=== PATIENT | male | born 1990 | race Caucasian/White ===

== ENCOUNTER 2017-08-05 14:27 | Emergency (ER) | payer OTHER ==
[2017-08-05] MEDS ORDERED: NS 1,000 ML IV ONE (16:14)
--- NOTE | 2017-08-05 16:20 | EDPHY ---
H & P Time Seen by Provider: 08/05/17 16:05 HPI/ROS: CHIEF COMPLAINT: Abdominal pain HISTORY OF PRESENT ILLNESS: 27-year-old male presents to the emergency department complaining of right lower quadrant abdominal pain. The pain began 4 days ago and was gradually getting worse over the weekend. He states today he has not had any appetite and he feels that the pain is much worse. Still localized in the right lower quadrant. No radiation of pain. He had 1 episode of vomiting over the weekend. No diarrhea. No chest pain or difficulty breathing. No known ill contacts. No reported trauma. No urinary symptoms. He states he has urinated twice today. No fevers or chills. Never had pain like this in the past. REVIEW OF SYSTEMS: Constitutional: No fever, no chills. Eyes: No double or blurry vision. ENT: No sore throat. Respiratory: No cough, no shortness of breath. Cardiac: No chest pain. Gastrointestinal: Abdominal pain as above. Vomiting. No diarrhea. Genitourinary: No dysuria. Musculoskeletal: No neck or back pain. Skin: No rashes. Neurological: No headache. Past Medical/Surgical History: Negative Social History: Single and lives in [place]. No PCP. Smoking Status: Former smoker Physical Exam: General Appearance: Alert, no distress. Afebrile. No apparent distress. Eyes: Pupils equal and round. Extraocular motions are all intact. ENT: Mouth: Mucous membranes moist. Respiratory: No wheezing, rhonchi, or rales, lungs are clear to auscultation. Cardiovascular: Regular rate and rhythm. Gastrointestinal: Abdomen is soft. He has tenderness with palpation in the right lower quadrant. He has positive rebound tenderness. No CVA tenderness bilaterally. No palpable masses noted. Neurological: Alert and oriented x 3, cranial nerves II through XII grossly intact Skin: Warm and dry, no rashes. Musculoskeletal: Nontender to palpate along the cervical, thoracic or lumbar spine. Neck is supple. Extremities: Full range of motion and no peripheral edema. Psychiatric: Patient is oriented X 3, there is no agitation. Constitutional: Initial Vital Signs Temperature (C) 36.8 C 08/05/17 14:36 Heart Rate 74 08/05/17 14:36 Respiratory Rate 16 08/05/17 14:36 Blood Pressure 162/92 H 08/05/17 14:36 O2 Sat (%) 96 03/12/18 14:36 O2 Delivery Mode Room Air Allergies/Adverse Reactions: Penicillins Allergy (Intermediate, Verified 08/06/17 09:21) hives as child Home Medications: Medication Instructions Recorded No Medications [NO HOME 1 ea [facility] [place] 05/27/11 MEDICATIONS] Medical Decision Making - Diagnostics Imaging: Discussed imaging studies w/ acoustics teacher Radiologist ED Course/Re-evaluation: 27-year-old male presents to the emergency department with right lower quadrant abdominal pain. The pain began 4 days ago. He is afebrile. He has not had much of an appetite and has not eaten today. Initial ultrasound was obtained and they were unable to see the appendix. CT scan of the abdomen pelvis revealed evidence of isolated ascending colitis. No evidence of perforation or abscess. No tics. I spoke with the on-call first aid nurse, Dr. Vazquez, and he was informed that the patient would like to go home. He is tolerating p.o. Fluids. [facility] will contact the patient tomorrow to arrange for an outpatient follow-up appointment and likely colonoscopy. I offered admission to the hospital the patient declined. Patient was instructed to return to the emergency department if he developed worsening abdominal pain if he was unable to eat or drink, if you developed vomiting or diarrhea, fevers, or if he felt worse in any way. The case was discussed with Dr. Chrissy Loving, supervising physician, who did not directly evaluate the patient but agrees with treatment and plan. Differential Diagnosis: Including but not limited to acute appendicitis, urinary tract infection, pyelonephritis, kidney stone, mesenteric adenitis, gastroenteritis - Data Points Laboratory Results: Laboratory Results 08/05/17 16:42 08/05/17 16:42 Medications Given: Discontinued Medications Sodium Chloride (Ns) 1,000 mls @ 0 mls/hr IV ONCE ONE PRN Reason: Wide Open Stop: 08/05/17 16:15 Last Admin: 08/05/17 16:45 Dose: 1,000 mls Departure - Departure Disposition: Home, Routine, Self-Care Clinical Impression: Colitis Abdominal pain Qualifiers: Abdominal location: right lower quadrant Qualified Code(s): R10.31 - Right lower quadrant pain Condition: Good Instructions: Colitis (ED) Additional Instructions: Clear liquids and slowly advance diet as tolerated. Abdominal Pain: Return to the Emergency Department immediately for increasing pain, fever, vomiting, or if not completely better in 8-12 hours. We spoke with Dr. Rivera Vazquez while you are in the emergency department who is the on-call first aid nurse. Their office will contact you tomorrow to arrange for a outpatient follow-up appointment. If you do not hear from them by tomorrow afternoon, please call our office and tell them that you were seen in the emergency department and we spoke with Dr. Rivera Vazquez while you were here in your instructed to be seen for follow-up. Referrals: Rivera Vazquez MD [Medical Doctor] - 2-3 days without fail ( Computer Video Game Designer on-call)
[2017-08-05 16:59] LABS: PLATELET COUNT 195 10^3/uL (150-400)
[2017-08-05] MEDS ORDERED: IOPAMIDOL (ISOVUE-300) 100 ML BTL ONE (18:18)
[2017-08-05 18:21] VITALS: TEMP 98.4
[2017-08-05 20:37] VITALS: BP 148/95; PULSE 78; RESP 18; O2SAT 95
== END 2017-08-05 20:52 | disposition home or self-care (01) ==
DX: K52.9 Noninfective gastroenteritis and colitis, unspecified (principal); R11.10 Vomiting, unspecified; Z87.891 Personal history of nicotine dependence
CPT/HCPCS: Q9967

== ENCOUNTER 2017-08-06 09:19 | Inpatient (IN) | payer OTHER ==
[2017-08-06] MEDS ORDERED: NS 1,000 ML IV ONE (09:51)
--- NOTE | 2017-08-06 09:53 | EDPHY ---
H & P Smoking Status: Former smoker Time Seen by Provider: 08/06/17 09:41 HPI/ROS: CHIEF COMPLAINT: Abdominal pain HISTORY OF PRESENT ILLNESS: 27-year-old male presents to the emergency department with ongoing right sided abdominal pain. Symptoms began 4 5 days ago. He was seen in the emergency department yesterday and on CT scan the patient had ascending colitis. No evidence of perforation or abscess. Patient had no episodes of vomiting or diarrhea the emergency department. Patient was offered admission, however he wanted to go home. He was tolerating p.o. Fluids. He was to follow up with Gastroenterology who we spoke with while he was here. The patient returns to the emergency department this morning after the pain woke him up about 3 o'clock this morning. He has been only able to drink very little because of the abdominal pain. He is urinating very little. He has no diarrhea. No fevers or chills. No chest pain or difficulty breathing. REVIEW OF SYSTEMS: Constitutional: No fever, no chills. Eyes: No double or blurry vision. ENT: No sore throat. Respiratory: No cough, no shortness of breath. Cardiac: No chest pain. Gastrointestinal: Abdominal pain. No vomiting or diarrhea now. Genitourinary: No dysuria. Musculoskeletal: No neck or back pain. Skin: No rashes. Neurological: No headache. (Josephine Prajapati) Past Medical/Surgical History: Drinks 4-5 alcoholic beverages daily. (Josephine Prajapati) Social History: Single (Josephine Prajapati) Physical Exam: General Appearance: Alert, no distress. Afebrile. Eyes: Pupils equal and round. Extraocular motions are all intact. ENT: Mouth: Mucous membranes moist. Respiratory: No wheezing, rhonchi, or rales, lungs are clear to auscultation. Cardiovascular: Regular rate and rhythm. Gastrointestinal: Abdomen is soft. Tenderness with palpation in the right lower and right upper quadrant. He does have some positive rebound tenderness. He is not guarding. No CVA tenderness bilaterally. Neurological: Alert and oriented x 3, cranial nerves II through XII grossly intact Skin: Warm and dry, no rashes. Musculoskeletal: Nontender to palpate along the cervical, thoracic or lumbar spine. Neck is supple. Extremities: Full range of motion and no peripheral edema. Psychiatric: Patient is oriented X 3, there is no agitation. (Josephine Prajapati) Constitutional: Initial Vital Signs Temperature (C) 36.7 C 08/06/17 09:21 Heart Rate 79 08/06/17 09:21 Respiratory Rate 18 08/06/17 09:21 Blood Pressure 150/102 H 08/06/17 09:21 O2 Sat (%) 96 08/06/17 09:21 O2 Delivery Mode Room Air Allergies/Adverse Reactions: Penicillins Allergy (Intermediate, Verified 08/06/17 09:21) hives as child Home Medications: Medication Instructions Recorded No Medications [NO HOME 1 ea [facility] [place]/27[place]11 MEDICATIONS] Medical Decision Making ED Course/Re-evaluation: I discussed this case with Josephine Prajapati. I agree this patient has significant bowel inflammatory process. He may have a new onset new diagnosis of inflammatory bowel disease. He was here yesterday. He tried to manage as an outpatient but failed. He cannot hold down any fluids or food. We will consult Gastroenterology who Josephine spoke with yesterday and will admit him to the hospitalist. (Kei Sarah) 27-year-old male presents emergency department with right-sided abdominal pain. Patient had evidence of ascending colitis on CT scan yesterday. Patient still continues to have ongoing abdominal pain as well as rebound tenderness. He is afebrile. No vomiting or diarrhea. Laboratory studies reveal repeat CBC is 9.9. Liver function tests are still elevated. Patient states that he drinks alcohol daily. He did not drink any alcohol yesterday or today. The patient was offered admission to the hospital when he was in the emergency department yesterday, however the patient declined. Now that he returns with ongoing abdominal pain, unable to eat and drink without pain, he will be admitted to the hospitalist. Patient will be admitted to Dr. Tricia Santana the medical-surgical floor. 10:30 a.m.: I spoke with the on-call flexible nanny, Dr. Vazquez, who will come to evaluate the patient in the hospital. (Josephine Prajapati) Differential Diagnosis: Including but not limited to infectious colitis, inflammatory bowel disease, perforation, abscess, sepsis, dehydration (Josephine Prajapati) - Data Points Laboratory Results: Laboratory Results 08/06/17 10:00 08/06/17 10:00 08/06/17 08/06/17 10:00 10:00 WBC 9.90 10^3/uL H 10^3/uL (3.80-9.50) RBC 5.03 10^6/uL 10^6/uL (4.40-6.38) Hgb 16.7 g/dL g/dL (13.7-17.5) Hct 47.6 % % (40.0-51.0) MCV 94.6 fL fL (81.5-99.8) MCH 33.2 pg pg (27.9-34.1) MCHC 35.1 g/dL g/dL (32.4-36.7) RDW 12.1 % % (11.5-15.2) Plt Count 212 10^3/uL 10^3/uL (150-400) MPV 9.8 fL fL (8.7-11.7) Neut % (Auto) 65.6 % % (39.3-74.2) Lymph % (Auto) 20.7 % % (15.0-45.0) [place] % (Auto) 11.8 % % (4.5-13.0) Eos % (Auto) 0.6 % % (0.6-7.6) Baso % (Auto) 1.0 % % (0.3-1.7) Nucleat RBC Rel Count 0.0 % % (0.0-0.2) Absolute Neuts (auto) 6.49 10^3/uL 10^3/uL (1.70-6.50) Absolute Lymphs (auto) 2.05 10^3/uL 10^3/uL (1.00-3.00) Absolute Monos (auto) 1.17 10^3/uL H 10^3/uL (0.30-0.80) Absolute Eos (auto) 0.06 10^3/uL 10^3/uL (0.03-0.40) Absolute Basos (auto) 0.10 10^3/uL 10^3/uL (0.02-0.10) Absolute Nucleated RBC 0.00 10^3/uL 10^3/uL (0-0.01) Immature Gran % 0.3 % % (0.0-1.1) Immature Gran # 0.03 10^3/uL 10^3/uL (0.00-0.10) Sodium 139 mEq/L mEq/L (135-145) Potassium 4.4 mEq/L mEq/L (3.5-5.2) Chloride 101 mEq/L mEq/L (97-110) Carbon Dioxide 20 mEq/l L D mEq/l (22-31) Anion Gap 18 mEq/L H mEq/L (8-16) BUN 14 mg/dL mg/dL (7-23) Creatinine 0.8 mg/dL mg/dL (0.7-1.3) Estimated GFR > 60 Glucose 75 mg/dL mg/dL (70-100) Calcium 9.4 mg/dL mg/dL (8.5-10.4) Total Bilirubin 1.8 mg/dL H mg/dL (0.1-1.4) Conjugated Bilirubin 0.6 mg/dL H mg/dL (0.0-0.5) Unconjugated Bilirubin 1.2 mg/dL H mg/dL (0.0-1.1) AST 96 IU/L H IU/L (17-59) ALT 195 IU/L H IU/L (21-72) Alkaline Phosphatase 85 IU/L IU/L (38-126) Total Protein 8.2 g/dL g/dL (6.3-8.2) Albumin 4.6 g/dL g/dL (3.5-5.0) Departure - Departure Disposition: [facility] Inpatient Acute Clinical Impression: Colitis Abdominal pain Qualifiers: Abdominal location: right lower quadrant Qualified Code(s): R10.31 - Right lower quadrant pain Condition: Good
[2017-08-06 10:07] LABS: PLATELET COUNT 212 10^3/uL (150-400)
[2017-08-06] MEDS ORDERED: LORazepam 2 MG/ML INJ IVP PRN (10:30)
[2017-08-06] MEDS ORDERED: ONDANSETRON 4 MG/2 ML VIAL IVP PRN (10:30)
[2017-08-06] MEDS ORDERED: ONDANSETRON DISINTEGRATING 4 MG TAB PO PRN (10:30)
[2017-08-06] MEDS: NS 1,000 ML IV SCH ×2 (12:06→22:14)
[2017-08-06] MEDS: levOFLOXACIN 500 MG/DEXTROSE 100 ML IV SCH (15:31)
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
[2017-08-06] MEDS ORDERED: ACETAMINOPHEN 325 MG TAB PO PRN (16:20)
[2017-08-06] MEDS ORDERED: IBUPROFEN 600 MG TAB PO PRN (16:21)
[2017-08-06] MEDS: PANTOPRAZOLE SODIUM 40 MG TAB PO SCH (18:15)
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
[2017-08-07 06:53] LABS: PLATELET COUNT 194 10^3/uL (150-400)
--- NOTE | 2017-08-07 09:04 | SOAPPROG ---
SOAP Progress Note Assessment/Plan: Assessment: Pain somewhat improved. ? Colitis on CT scen inthe right colon. ? infectious. Plan: 1. Continue on Levaquin and Flagyl 2. Follow clinically, PE 3. Advance to low fiber diet 08/07/17 09:04 Subjective: CC: right sided abdominal pain. No BM's since admission. Slept well, pain is lightly improved. Objective: Vital Signs Temp Pulse Resp BP Pulse Ox 36.9 C 62 16 117/69 95 08/07/17 08:00 08/07/17 08:00 08/07/17 08:00 08/07/17 08:00 08/07/17 08:00 Laboratory Results 08/07/17 06:28 08/07/17 06:28 08/06/17 08/07/17 08/08/17 05:59 05:59 05:59 Intake Total 3590 Output Total 100 Balance 3490 Generic Name Dose Route Start Last Admin Trade Name Freq PRN Reason Stop Dose Admin Acetaminophen 650 mg 08/06/17 16:20 Tylenol PO 02/02/18 16:19 Q4HRS PRN Pain, Mild/Fever, Can Take PO Sodium Chloride 1,000 mls @ 100 mls/hr 08/06/17 10:30 08/06/17 22:14 Ns IV 02/02/18 10:29 1,000 mls CONT SYLVESTER Administration Thiamine HCl 500 mg/ Sodium 505 mls @ 505 mls/hr 08/07/17 09:00 Chloride IV 08/10/17 08:59 DAILY SYLVESTER Levofloxacin/Dextrose 100 mls @ 100 mls/hr 08/06/17 14:45 08/06/17 15:31 Levaquin 500 Mg (Premix) IV 09/05/17 14:44 100 mls DAILY SYLVESTER Administration Protocol Metronidazole/Sodium Chloride 100 mls @ 100 mls/hr 08/06/17 22:00 08/07/17 05 :46 Flagyl 500 Mg (Premix) IV 09/05/17 21:59 100 mls Q8HRS SYLVESTER Administration Protocol Ibuprofen 600 mg 08/06/17 16:21 Motrin PO 02/02/18 16:20 Q6HRS PRN Pain, Inflammatory Lorazepam 0 mg 08/06/17 10:30 Ativan Injection IVP 02/02/18 10:29 Q1H PRN Alcohol Withdrawal w/IV access Protocol Multivitamins 1 each 08/07/17 09:00 Tab-A-Nikki PO 02/03/18 08:59 DAILY SYLVESTER Ondansetron HCl 4 mg 08/06/17 10:30 Zofran IVP 02/02/18 10:29 Q4HRS PRN Nausea/Vomiting, Can't Take PO Ondansetron HCl 4 mg 08/06/17 10:30 Zofran Odt PO 02/02/18 10:29 Q4HRS PRN Nausea/Vomiting, Use 1st Pantoprazole Sodium 40 mg 08/06/17 17:15 08/06/17 18:15 Protonix PO 02/02/18 17:14 40 mg DAILY SYLVESTER Administration Thiamine HCl 100 mg 08/09/17 10:30 Vitamin B-1 PO 02/05/18 10:29 DAILY SYLVESTER Discontinued Medications Generic Name Dose Route Start Last Admin Trade Name Freq PRN Reason Stop Dose Admin Sodium Chloride 1,000 mls @ 0 mls/hr 08/06/17 09:51 08/06/17 10:42 Ns IV 08/06/17 09:52 1,000 mls ONCE ONE Administration Wide Open Physical Exam - Physical Exam General Appearance: alert, no apparent distress Respiratory: lungs clear, normal breath sounds Cardiac/Chest: regular rate, rhythm Abdomen: normal bowel sounds, other (tenderness to palpation right abdomen) Skin: normal color, warm/dry Neuro/Psych: no motor/sensory deficits, alert, normal mood/affect, oriented x 3 ICD10 Worksheet Patient Problems: Problems Problem Status Onset Abdominal pain Acute Colitis Acute Abdominal pain Acute Colitis Acute
[2017-08-07] MEDS: levOFLOXACIN 500 MG/DEXTROSE 100 ML IV SCH (09:16)
[2017-08-07] MEDS: PANTOPRAZOLE SODIUM 40 MG TAB PO SCH (09:16)
[2017-08-07] MEDS: MULTIVITAMINS 1 EACH TAB PO SCH (09:16)
[2017-08-07] MEDS: THIAMINE HCL 500 MG in NS 500 ML IV SCH (09:16)
--- NOTE | 2017-08-07 09:50 | ASMTCASEMG ---
Living Arrangements What is your living Answers: Alone arrangement? Who do you live with? Type Of Residence What kind of residence do Answers: House you live in? Discharge Plan Comments Coordination Status Comments Notes: Pt is a 27 y/o man admitted for abdominal pain. CT showed that pt has ascending colitis. Gastroenterology has been ordered. Pt will most likely not have any needs at time of d/c. No therapies ordered at this time. CM available for changes. Plan: Independent Date Signed: 08/07/2017 09:48 AM Electronically Signed By:TORIBIO Greenwood
--- NOTE | 2017-08-07 13:26 | HOSPPROG ---
Hospitalist Progress Note Assessment/Plan: 27y male with c/o abd pain. First encounter, chart reviewed. #R Abd pain -appreciate GI consult -cont abx therapy -improving -cotn supportive care #Transaminitis -follow labs -improving #Dispo -requires further therapy in hospital setting -change to inpt status -cont IV abx Subjective: Still having pain when moving. Feeling better then yesterday. Objective: Vital Signs Temp Pulse Resp BP Pulse Ox 36.8 C 79 16 124/77 H 92 08/07/17 11:21 08/07/17 11:21 08/07/17 11:21 08/07/17 11:21 08/07/17 11:21 Laboratory Results 08/07/17 06:28 08/07/17 06:28 08/06/17 08/07/17 08/08/17 05:59 05:59 05:59 Intake Total 3590 Output Total 100 Balance 3490 - Physical Exam Constitutional: no apparent distress, appears nourished, uncomfortable Eyes: PERRL, anicteric sclera, EOMI Ears, Nose, Mouth, Throat: moist mucous membranes, hearing normal, ears appear normal Cardiovascular: regular rate and rhythym, No JVD, No tachycardia, No edema Respiratory: no respiratory distress, no rales or rhonchi, clear to auscultation Gastrointestinal: normoactive bowel sounds, tenderness, No ascites, No guarding Skin: warm, normal color, No mottled Musculoskeletal: normal joint ROM, no joint effusions, generalized weakness Neurologic: AAOx3 Psychiatric: interacting appropriately, not anxious, not encephalopathic, thought process linear ICD10 Worksheet Patient Problems: Problems Problem Status Onset Abdominal pain Acute Colitis Acute Abdominal pain Acute Colitis Acute
--- NOTE | 2017-08-07 15:46 | PDMN ---
Medical Necessity Medical necessity: M565 inflammatory bowel disease A-2 days: insuff. responsiveness to outpt tx., with ongoing abd pain, no BM since admission, transaminitis, cont IV abx , IV fluids, > 2 midnights,
[2017-08-07] MEDS ORDERED: METHYL SALICYLATE/MENTHOL OINTMENT TP PRN (20:10)
[2017-08-08 06:03] LABS: HEPATITIS B SURFACE ANTIGEN NEGATIVE (NEGATIVE)
[2017-08-08 06:21] LABS: HEPATITIS C ANTIBODY TOTAL NEGATIVE (NEGATIVE)
--- NOTE | 2017-08-08 06:42 | HOSPPROG ---
Hospitalist Progress Note Assessment/Plan: XC: C. Diff positive, will change to PO Flagyl. Objective: Vital Signs Temp Pulse Resp BP Pulse Ox 36.5 C 55 L 17 124/80 H 93 08/08/17 04:00 08/08/17 04:00 08/08/17 04:00 08/08/17 04:00 08/08/17 04:00 Microbiology 08/07/17 18:25 Gastrointestinal Tract Panel (PCR) - Final Stool Clostridium Difficile Detected 08/07/17 08/08/17 08/09/17 05:59 05:59 05:59 Intake Total 2692 1784 Output Total 1 Balance 2691 1784 ICD10 Worksheet Patient Problems: Problems Problem Status Onset Abdominal pain Acute Colitis Acute Abdominal pain Acute Colitis Acute
--- NOTE | 2017-08-08 10:15 | SOAPPROG ---
SOAP Progress Note Assessment/Plan: Assessment: Positive stool for C. Diff. clinically getting better. D/C IV antibiotics and start PO Flagyl Abnormal LFT's. Labs sent for serologic work up. Plan: 1. Discontinue IV antibiotics 2. Start PO Flagyl 500 mg PO TID x 14 days (must avoid alcohol on Flagyl) 3. Abnormal LFT's c/w ETOH/Fatty liver. Labs sent for serologic workup 4. Continue on low fiber diet for about a week then advance to regular diet 08/08/17 10:16 Subjective: CC: Abdominal pain Had some loose stool today. feeling much better. Abdominal pain is improved. Objective: Vital Signs Temp Pulse Resp BP Pulse Ox 36.6 C 56 L 16 104/68 91 L 08/08/17 07:11 08/08/17 07:11 08/08/17 07:11 08/08/17 07:11 08/08/17 07:11 Microbiology 08/07/17 18:25 Gastrointestinal Tract Panel (PCR) - Final Stool Clostridium Difficile Detected 08/07/17 08/08/17 08/09/17 05:59 05:59 05:59 Intake Total 2692 1784 Output Total 1 Balance 2691 1784 Generic Name Dose Route Start Last Admin Trade Name Freq PRN Reason Stop Dose Admin Acetaminophen 650 mg 08/06/17 16:20 Tylenol PO 02/02/18 16:19 Q4HRS PRN Pain, Mild/Fever, Can Take PO Sodium Chloride 1,000 mls @ 100 mls/hr 08/06/17 10:30 08/06/17 22:14 Ns IV 02/02/18 10:29 1,000 mls CONT SYLVESTER Administration Thiamine HCl 500 mg/ Sodium 505 mls @ 505 mls/hr 08/07/17 09:00 08/07/17 09: 16 Chloride IV 08/10/17 08:59 505 mls DAILY SYLVESTER Administration Ibuprofen 600 mg 08/06/17 16:21 08/07/17 22:30 Motrin PO 02/02/18 16:20 600 mg Q6HRS PRN Administration Pain, Inflammatory Lorazepam 0 mg 08/06/17 10:30 Ativan Injection IVP 02/02/18 10:29 Q1H PRN Alcohol Withdrawal w/IV access Protocol Metronidazole 500 mg 08/08/17 14:00 Flagyl PO 09/07/17 13:59 Q8HRS SYLVESTER Protocol Multi-Ingredient Ointment 1 blade 08/07/17 20:10 08/07/17 20:52 Bengay TP 02/03/18 20:09 1 blade Q6HRS PRN Administration Pain, Mild Multivitamins 1 each 08/07/17 09:00 08/07/17 09:16 Tab-A-Nikki PO 02/03/18 08:59 1 each DAILY SYLVESTER Administration Ondansetron HCl 4 mg 08/06/17 10:30 Zofran IVP 02/02/18 10:29 Q4HRS PRN Nausea/Vomiting, Can't Take PO Ondansetron HCl 4 mg 08/06/17 10:30 Zofran Odt PO 02/02/18 10:29 Q4HRS PRN Nausea/Vomiting, Use 1st Pantoprazole Sodium 40 mg 08/06/17 17:15 08/07/17 09:16 Protonix PO 02/02/18 17:14 40 mg DAILY SYLVESTER Administration Thiamine HCl 100 mg 08/09/17 10:30 Vitamin B-1 PO 02/05/18 10:29 DAILY SYLVESTER Discontinued Medications Generic Name Dose Route Start Last Admin Trade Name Freq PRN Reason Stop Dose Admin Sodium Chloride 1,000 mls @ 0 mls/hr 08/06/17 09:51 08/06/17 10:42 Ns IV 08/06/17 09:52 1,000 mls ONCE ONE Administration Wide Open Levofloxacin/Dextrose 100 mls @ 100 mls/hr 08/06/17 14:45 08/07/17 09:16 Levaquin 500 Mg (Premix) IV 09/05/17 14:44 100 mls DAILY SYLVESTER Administration Protocol Metronidazole/Sodium Chloride 100 mls @ 100 mls/hr 08/06/17 22:00 08/08/17 06 :08 Flagyl 500 Mg (Premix) IV 09/05/17 21:59 100 mls Q8HRS SYLVESTER Administration Protocol Physical Exam - Physical Exam General Appearance: alert, no apparent distress Respiratory: lungs clear, normal breath sounds Cardiac/Chest: regular rate, rhythm Abdomen: normal bowel sounds, non-tender, soft Skin: normal color, warm/dry ICD10 Worksheet Patient Problems: Problems Problem Status Onset Abdominal pain Acute Colitis Acute Abdominal pain Acute Colitis Acute
[2017-08-08] MEDS: NS 1,000 ML IV SCH (10:34)
[2017-08-08] MEDS: MULTIVITAMINS 1 EACH TAB PO SCH (10:51)
[2017-08-08] MEDS: PANTOPRAZOLE SODIUM 40 MG TAB PO SCH (10:51)
[2017-08-08] MEDS: THIAMINE HCL 500 MG in NS 500 ML IV SCH (11:31)
[2017-08-08 11:44] VITALS: BP 134/91; PULSE 72; RESP 18; TEMP 98.4; O2SAT 93
[2017-08-08] MEDS ORDERED: metroNIDAZOLE 500 MG TAB PO SCH (14:00)
--- NOTE | 2017-08-08 14:36 | GDS ---
[f rep st] DISCHARGE SUMMARY DISCHARGE DIAGNOSES: 1. Clostridium difficile. 2. Transaminitis. CONSULTATIONS: Gastroenterology. PHYSICAL EXAM: GENERAL: The patient is alert. VITAL SIGNS: Afebrile at 36.9, pulse 72, respirator y rate is 18, blood pressure is 134/91. He is saturating 93% on room air. I have seen and evaluated the patient on the day of discharge. HOSPITAL COURSE: Patient is a 27-year-old male who presented to the emergency room with complaints o f abdominal pain. He was evaluated and diagnosed with Clostridium difficile. Patient had recently b een given a dose of antibiotic therapy in the outpatient setting with some tooth extraction. He had been initiated on oral Flagyl and was responding well to the antibiotic therapy. He will continue or al Flagyl in the outpatient setting. He also had notable elevated LFTs during this hospitalization. Further laboratory values were sent and pending at the time of disposition. He should follow with h is primary care physician for these results. He is tolerating a regular diet. Vital signs are stabl e. His abdominal pain is almost completely resolved, and he will be discharged home independently. I have discussed with the patient regarding his alcohol consumption and suggested decreasing his week ly alcohol ingestion. He states that he is in agreement with this plan. I have also educated him th at he should not be consuming alcohol while on Flagyl. He agrees with this plan as well. Followup w ill be with the primary care physician of his choice, as well as Gastroenterology, in the outpatient setting. Pending studies include serologies. I spent greater than 35 minutes in the care, coordination, and management of patient's disposition. /[id number]/MODL
[2017-08-09] MEDS ORDERED: THIAMINE HCL 100 MG TAB PO SCH (10:30)
== END 2017-08-08 13:00 | disposition home or self-care (01) | DRG 373 ==
LOC: F3E 11:31 → OBSVTOIN 08-07 13:28
PROVIDERS: ADMIT Family Medicine; ATTEND Family Medicine
DX: A04.72 Enterocolitis due to Clostridium difficile, not specified as recurrent (principal); R74.0 Nonspecific elevation of levels of transaminase and lactic acid dehydrogenase [LDH]; Z72.89 Other problems related to lifestyle
CPT/HCPCS: 82390-90; 86255-90; G0378; G0472; J1956; J3411